=== PATIENT | male | born 1965 | race Caucasian/White ===

== ENCOUNTER 2021-11-11 00:11 | Emergency (ER) | payer SELFPAY ==
[~2021-11-11] VITALS: Ht 185.4 cm; Wt 87.7 kg
[2021-11-11 00:27] VITALS: TEMP 98.3
[2021-11-11 01:13] LABS: HEMATOCRIT 40.9 % (42.0-52.0); HEMOGLOBIN 13.7 g/dl (13.5-18.0); MEAN CELL VOLUME 93 fl (80.0-100.0); MEAN CORPUSCULAR HEMOGLOBIN 31 pg (27-31); MEAN CORPUSCULAR HGB CONC 34 g/dl (33.0-37.0); MEAN PLATELET VOLUME 9.1 fl (7.4-10.4); PLATELET COUNT 310 K/mm3 (130-400); RED BLOOD COUNT 4.39 M/mm3 (4.20-5.60); REDCELL DISTRIBUTION WIDTH-CV 12.9 % (11.5-14.5)
[2021-11-11 01:31] LABS: BAND 2 % (0-10); EOSINOPHIL 4 % (0-4); LYMPHOCYTE 5 % (20.0-51.0); METAMYELOCYTE 1 % (0-0); NEUTROPHILS 82 % (42.0-75.2); PLATELET ESTIMATE NORMAL (NORMAL)
[2021-11-11 01:35] LABS: ALANINE AMINOTRANSFERASE 30 U/L (0-55); ALBUMIN 3.1 gm/dL (3.5-5.0); ALKALINE PHOSPHATASE 80 U/L (40-150); ANION GAP 12 mmol/L (7-16); AST,SGOT 31 U/L (5-34); BILIRUBIN,TOTAL 0.2 mg/dL (0.2-1.2); BLOOD UREA NITROGEN 14 mg/dL (8-26); CALCIUM 8.9 mg/dL (8.4-10.2); CARBON DIOXIDE 19 mmol/L (22-29); CHLORIDE 109 mmol/L (98-107); CREATININE, serum 0.75 mg/dL (0.72-1.25); GLUCOSE 102 mg/dL (70-99); LIPASE 15 U/L (8-78); SODIUM 140 mmol/L (136-145); TOTAL PROTEIN 6.3 gm/dL (6.2-8.1)
[2021-11-11 01:42] LABS: TROPONIN-I < 0.010 ng/mL (0.00-0.033)
[2021-11-11 01:55] VITALS: BP 126/70; PULSE 85
== END 2021-11-11 01:55 | disposition home or self-care (01) ==
LOC: COL.ER 00:11
PROVIDERS: Emergency Medicine; Nurse Practitioner Primary Care
DX: U07.1 COVID-19 (principal); F17.210 Nicotine dependence, cigarettes, uncomplicated; Z28.310 Unvaccinated for COVID-19